=== PATIENT | female | born 1990 | race Caucasian/White ===

== ENCOUNTER 2019-07-13 09:42 | Emergency (ER) | payer OTHER ==
[2019-07-13 10:27] VITALS: RESP 18
[2019-07-13] MEDS ORDERED: LIDOCAINE 5% PATCH TOPICAL STA (11:19)
--- NOTE | 2019-07-13 11:24 | ED ---
General Adult HPI - General Chief complaint: Neck Pain/Injury Stated complaint: neck, chest, arm & jaw pain Time Seen by Provider: 07/13/19 10:43 Source: patient Mode of arrival: ambulatory Limitations: no limitations - History of Present Illness Initial comments: Dictation was produced using [employer] dictation software. please excuse any grammatical, word or spelling errors. Chief Complaint: 28-year-old female presents with neck pain. History of Present Illness: 28-year-old female she presents with bilateral neck pain. Patient states that the pain is located to the bilateral trapezius. States that the pain sometimes radiates down the arm. She called her primary care physician 2 weeks ago and was instructed to come to the emergency department at that time. She was not able to do find a ride until today. Patient states she feels as though her primary care physician is not addressing her complaints. She did complete a round of physical therapy for her neck pain. Patient hasn't noticed tingling or paresthesias to the extremities. 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 The ROS documented in this emergency department record has been reviewed and confirmed by me. Those systems with pertinent positive or negative responses have been documented in the HPI. All other systems are other negative and/or noncontributory. PHYSICAL EXAM: General Impression: Alert and oriented x3, not in acute distress HEENT: Normocephalic atraumatic, extra-ocular movements intact, pupils equal and reactive to light bilaterally, mucous membranes moist. Cardiovascular: Heart regular rate and rhythm, S1&S2 audible, no murmurs, rubs or gallops Chest: Lungs clear to auscultation bilaterally, no rhonchi, no wheeze, no rales Abdomen: Bowel sounds present, abdomen soft, non-tender, non-distended, no organomegaly Musculoskeletal: Pulses present and equal in all extremities, no peripheral edema, reproducible tenderness to the bilateral trapezius area, no midline cervical spine tenderness Motor: no focal deficits noted Neurological: CN II-XII grossly intact, no focal motor or sensory deficits noted Skin: Intact with no visualized rashes Psych: Normal affect and mood ED course: 28-year-old female presents with musculoskeletal neck pain. On arrival are within acceptable limits. Reassurance provided to patient. She is given referral to natural resources specialist. Patient provided with a lidoderm patch to the bilateral trapezius area. Patient told that she needs to follow up with her primary care physician regarding these complaints. - Related Data Home Medications Medication Instructions Recorded Confirmed Meloxicam 15 mg PO DAILY 07/13/19 07/13/19 Tri Femynor 1 tab PO HS 07/13/19 07/13/19 predniSONE See Taper PO DAILY 07/13/19 07/13/19 Allergies Allergy/AdvReac Type Severity Reaction Status Date / Time Latex, Natural Rubber Allergy Rash/Hives Verified 07/13/19 11:07 Review of Systems ROS Statement: Those systems with pertinent positive or pertinent negative responses have been documented in the HPI. ROS Other: All systems not noted in ROS Statement are negative. Past Medical History Additional Past Medical History / Comment(s): arthritis neck History of Any Multi-Drug Resistant Organisms: None Reported Additional Past Surgical History / Comment(s): left foot surgery Past Psychological History: No Psychological Hx Reported Smoking Status: Current every day smoker General Exam Limitations: no limitations Course Vital Signs 07/13/19 10:18 Temperature 97.5 F L Pulse Rate 78 Respiratory 18 Rate Blood Pressure 138/73 O2 Sat by Pulse 99 Oximetry Disposition Clinical Impression: Strain of neck muscle Disposition: HOME SELF-CARE Condition: Good Instructions (If sedation given, give patient instructions): Cervical Strain (ED) Additional Instructions: Please follow up with orthopedic spinal surgery regarding your symptoms of chronic neck pain Is patient prescribed a controlled substance at d/c from ED?: No Referrals: Faisal Awan DO [Primary Care Provider] - 1-2 days Marcia Ramírez DO [Doctor of Osteopathic Medicine] - 1-2 days Time of Disposition: 11:24
[2019-07-13 11:42] VITALS: BP 133/74; PULSE 71; TEMP 98.1
== END 2019-07-13 11:42 | disposition home or self-care (01) ==
LOC: EC 09:42
DX: S16.1XXA Strain of muscle, fascia and tendon at neck level, initial encounter (principal); M47.812 Spondylosis without myelopathy or radiculopathy, cervical region; F17.200 Nicotine dependence, unspecified, uncomplicated; Z91.040 Latex allergy status; Z79.1 Long term (current) use of non-steroidal anti-inflammatories (NSAID); Z79.3 Long term (current) use of hormonal contraceptives; Z79.52 Long term (current) use of systemic steroids; Z87.828 Personal history of other (healed) physical injury and trauma; X58.XXXA Exposure to other specified factors, initial encounter
CPT/HCPCS: 93005; 99283

== ENCOUNTER → 2021-03-13 | Outpatient (CLI) | payer OTHER ==
[2021-03-13 15:12] LABS: Basophils # (A) 0.03 X 10*3/uL (0.00-0.10); Basophils % (A) 0.8 %; Eosinophils # (A) 0.12 X 10*3/uL (0.04-0.35); Eosinophils % (A) 3.1 %; HCT 42.8 % (37.2-46.3); HGB 13.9 g/dL (12.0-15.0); Lymphocytes # (A) 1.26 X 10*3/uL (0.90-5.00); Lymphocytes % (A) 32.1 %; MCHC 32.5 g/dL (32.0-37.0); MCV 95.5 fL (80.0-97.0); Mean Platelet Volume 12.2 fL (9.5-12.2); Monocytes # (A) 0.27 X 10*3/uL (0.20-1.00); Monocytes % (A) 6.9 %; Neutrophils # (A) 2.23 X 10*3/uL (1.80-7.70); Neutrophils % (A) 56.8 %; Platelet Count 189 X 10*3/uL (140-440); RBC 4.48 X 10*6/uL (4.10-5.20); RDW 11.9 % (11.5-14.5); WBC 3.92 X 10*3/uL (4.50-10.00)
[2021-03-13 16:09] LABS: BUN/Creat Ratio 9.86 Ratio (12.00-20.00); Globulin 2.3 g/dL (1.6-3.3)
[2021-03-13 16:10] LABS: African American GFR (CKD) 132.3 (60.0-200.0); Albumin 4.6 g/dL (3.8-4.9); Albumin/Globulin Ratio 2.01 (1.60-3.17); Anion Gap 10.4 mmol/L (4.00-12.00); Blood Urea Nitrogen 7.1 mg/dL (9.0-27.0); Calcium 9.7 mg/dL (8.7-10.3); Carbon Dioxide 26.4 mmol/L (21.6-31.8); Non-African American GFR(CKD) 114.2 (60.0-200.0); Potassium 4.1 mmol/L (3.5-5.5); T4, Free (Free Thyroxine) 1.36 ng/dL (0.800-1.800); Total Bilirubin 0.3 mg/dL (0.30-1.20); Total Protein 6.9 g/dL (6.2-8.2)
== END | disposition home or self-care (01) ==
LOC: NEUROMAIN 08:13
PROVIDERS: ATTEND Psychiatry & Neurology Neurology
DX: I49.9 Cardiac arrhythmia, unspecified (principal); E53.9 Vitamin B deficiency, unspecified; E55.9 Vitamin D deficiency, unspecified; R51.9 Headache, unspecified; R42 Dizziness and giddiness
CPT/HCPCS: 36415; 80053; 82306; 82607; 84207; 84439; 84443; 85025